=== PATIENT | male | born 1955 | race Caucasian/White ===

== ENCOUNTER 2024-03-01 00:02 | Inpatient (IN) | payer MEDICARE, OTHER ==
[~2024-03-01] VITALS: Ht 165.1 cm; Wt 72.6 kg
[2024-03-01 05:20] VITALS: BP 122/62; TEMP 98.2; O2SAT 96
[2024-03-01] MEDS ORDERED: MAG HYDROX/AL HYDROX/SIMETH 30 ML UDC PO PRN (05:30)
[2024-03-01] MEDS ORDERED: ACETAMINOPHEN 325 MG TABLET PO PRN (05:30)
[2024-03-01] MEDS ORDERED: clonazePAM 0.5 MG TABLET PO PRN ×2 (05:30→08:30)
[2024-03-01] MEDS ORDERED: TEMAZEPAM 7.5 MG CAPSULE PO PRN ×2 (05:30→08:30)
[2024-03-01] MEDS ORDERED: MAGNESIUM HYDROXIDE 30 ML UDC PO PRN (05:30)
[2024-03-01] MEDS: BLOOD SUGAR DIAGNOSTIC 1 EACH STRIP IN ONE (05:51)
[2024-03-01] MEDS ORDERED: BACI500P4 TP (06:28)
[2024-03-01 07:48] LABS: ALBUMIN 2.8 g/dL (3.4-5.0); BILIRUBIN,TOTAL 0.6 mg/dL (0.2-1.0); CALCIUM, SERUM 8.5 mg/dL (8.5-10.1); CREATININE 0.9 mg/dL (0.6-1.3); POTASSIUM 3.2 mmol/L (3.5-5.1); TOTAL PROTEIN, SERUM 7.1 g/dL (6.4-8.2)
[2024-03-01 08:00] VITALS: BP 126/81; TEMP 98.8; O2SAT 96
[2024-03-01] MEDS: ESCITALOPRAM OXALATE (10 MG) 10 MG TABLET PO SCH (09:42)
[2024-03-01] MEDS: ARIPIPRAZOLE 2 MG TABLET PO SCH (09:43)
[2024-03-01] MEDS: POTASSIUM CHLORIDE 20 MEQ TAB.PRT.SR PO ONE (13:31)
[2024-03-01 16:00] VITALS: BP 132/76; TEMP 98.7; O2SAT 98
[2024-03-01 20:57] VITALS: BP 121/88; TEMP 98.6; O2SAT 97
[2024-03-02 07:35] LABS: CHOLESTEROL 135 mg/dL (<200); HDL CHOLESTEROL 69 mg/dL (40-60); LDL 60 mg/dL (0-99); TRIGLYCERIDES 60 mg/dL (30-150)
[2024-03-02 08:00] VITALS: BP 150/87; TEMP 98.7; O2SAT 97
[2024-03-02 16:00] VITALS: BP 129/67; TEMP 98.7; O2SAT 99
[2024-03-02 20:00] VITALS: BP 144/81; TEMP 99; O2SAT 97
[2024-03-03 08:00] VITALS: BP 116/76; TEMP 98.7; O2SAT 98
[2024-03-03 16:00] VITALS: BP 104/93; TEMP 98.6; O2SAT 97
[2024-03-03 20:00] VITALS: BP 124/72; TEMP 98.4; O2SAT 97
[2024-03-04 08:00] VITALS: BP 115/65; TEMP 97.8; O2SAT 98
[2024-03-04 16:00] VITALS: BP 136/78; TEMP 98; O2SAT 100
[2024-03-04 20:00] VITALS: BP 121/67; TEMP 97.8; O2SAT 98
[2024-03-05 08:00] VITALS: BP 129/63; TEMP 98; O2SAT 96
[2024-03-05 16:15] VITALS: BP 139/74; TEMP 98; O2SAT 100
[2024-03-05 20:21] VITALS: BP 114/86; TEMP 98.2; O2SAT 99
[2024-03-06 08:00] VITALS: BP 127/85; TEMP 98; O2SAT 97
[2024-03-06 16:00] VITALS: BP 129/83; TEMP 97.7; O2SAT 97
[2024-03-06 20:30] VITALS: BP 126/82; TEMP 97.8; O2SAT 97
[2024-03-07 08:00] VITALS: BP 140/81; TEMP 98.2; O2SAT 96
[2024-03-07 16:07] VITALS: BP 127/74; TEMP 98.7; O2SAT 98
[2024-03-07 20:49] VITALS: BP 122/82; TEMP 98.6; O2SAT 99
[2024-03-07] MEDS: PERMETHRIN 5% CRM 60 GM TUBE TP ONE (21:26)
[2024-03-08 08:00] VITALS: BP 130/77; TEMP 98.2; O2SAT 99
[2024-03-08 16:00] VITALS: BP 117/65; TEMP 98.2; O2SAT 98
[2024-03-08 21:08] VITALS: BP 120/68; TEMP 98.6; O2SAT 99
[2024-03-09 08:00] VITALS: BP 135/87; TEMP 97.5; O2SAT 97
[2024-03-09 08:21] VITALS: BP 109/65; TEMP 97.6; O2SAT 97
[2024-03-09 08:49] VITALS: BP 135/87; TEMP 97.5; O2SAT 97
[2024-03-09 16:00] VITALS: BP 129/86; TEMP 97.6; O2SAT 98
[2024-03-09 20:00] VITALS: BP 127/70; TEMP 97.2; O2SAT 100
[2024-03-10 08:00] VITALS: BP 119/74; TEMP 97.9; O2SAT 97
[2024-03-10 08:24] LABS: CALCIUM, SERUM 9.4 mg/dL (8.5-10.1); CREATININE 0.7 mg/dL (0.6-1.3); POTASSIUM 4.1 mmol/L (3.5-5.1)
[2024-03-10 15:42] VITALS: BP 131/70; TEMP 98.2; O2SAT 98
[2024-03-10 20:00] VITALS: BP 139/66; TEMP 98.4; O2SAT 99
[2024-03-11 08:00] VITALS: BP 149/71; TEMP 98; O2SAT 96
[2024-03-11 16:00] VITALS: BP 132/75; TEMP 97.4; O2SAT 96
[2024-03-11 20:00] VITALS: BP 125/71; TEMP 98.1; O2SAT 97
[2024-03-12 08:00] VITALS: BP 145/84; TEMP 97.8; O2SAT 97
[2024-03-12 16:03] VITALS: BP 110/73; TEMP 98; O2SAT 98
[2024-03-12 20:00] VITALS: BP 137/78; TEMP 98.2; O2SAT 97
[2024-03-13 08:00] VITALS: BP 116/69; TEMP 98.2; O2SAT 98
[2024-03-13 16:00] VITALS: BP 124/69; TEMP 98.6; O2SAT 98
[2024-03-13 20:29] VITALS: BP 125/66; TEMP 98.6; O2SAT 98
[2024-03-14 08:14] VITALS: BP 151/82; TEMP 98; O2SAT 97
[2024-03-14 15:59] VITALS: BP 124/88; TEMP 98.6; O2SAT 95
[2024-03-14 20:13] VITALS: BP 129/74; TEMP 98.6; O2SAT 99
[2024-03-15 08:20] VITALS: BP 125/76; TEMP 98.6; O2SAT 97
[2024-03-15 16:00] VITALS: BP 122/69; TEMP 98.6; O2SAT 100
[2024-03-15 20:00] VITALS: BP 117/73; TEMP 98.7; O2SAT 97
[2024-03-16 08:00] VITALS: BP 135/79; TEMP 98.7; O2SAT 98
== END 2024-03-16 12:45 | disposition home or self-care (01) | DRG 885 ==
LOC: GPS 05:06
PROVIDERS: ADMIT Nurse Practitioner Psychiatric/Mental Health; ATTEND Internal Medicine
DX: F32.2 Major depressive disorder, single episode, severe without psychotic features (principal); R45.851 Suicidal ideations; E46 Unspecified protein-calorie malnutrition; F29 Unspecified psychosis not due to a substance or known physiological condition; F41.9 Anxiety disorder, unspecified; F32.A Depression, unspecified; F10.90 Alcohol use, unspecified, uncomplicated; Y90.9 Presence of alcohol in blood, level not specified; R29.6 Repeated falls; Z79.899 Other long term (current) drug therapy; Z63.5 Disruption of family by separation and divorce; F39 Unspecified mood [affective] disorder; S09.93XA Unspecified injury of face, initial encounter; W19.XXXA Unspecified fall, initial encounter; Y92.9 Unspecified place or not applicable; F43.9 Reaction to severe stress, unspecified; B86 Scabies; E78.5 Hyperlipidemia, unspecified; E87.6 Hypokalemia; I10 Essential (primary) hypertension
CPT/HCPCS: 36415; 80048-TC; 80053-TC; 80061-TC; 82962-TC; 87081-TC